=== PATIENT | female | born 2000 | race Caucasian/White ===

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

== ENCOUNTER 2019-01-04 19:07 | Emergency (ER) | payer BC ==
[~2019-01-04] VITALS: Ht 170.2 cm; Wt 47.6 kg
[~2019-01-04 19:07] MED LIST: QUETIAPINE FUM100 MG ORAL
[2019-01-04 19:10] VITALS: BP 134/88
--- NOTE | 2019-01-04 19:10 | NUR ---
ED Nurse Note: Patient brought in by [facility] c/o possible overdose, EMS states that the patient was found laying on the ground and when patient was picked up by EMS, patient had an unsteady gait. at time of arrival patient is alert and oriented x4, ambulatory with a steady gait, VSS. patient complains of no pain
--- NOTE | 2019-01-04 20:05 | Emergency Room Report ---
History of Present Illness General Chief Complaint: Substance Abuse Source: Patient Present Illness HPI Disclaimer: Please note that this report is being documented using [employer] technology. This can lead to erroneous entry secondary to incorrect interpretation by the dictating instrument. HPI: Is a 18-year-old female with history of depression on Seroquel presented for evaluation of ketamine use. She states she took ketamine recreationally today. Her roommate became concerned that she was ambulating with an unsteady gait at home and called EMS. The patient denies any complaints at this time but does endorse taking ketamine and that she was acting "high" making her roommate very scared. She denies any headache, vision changes, nausea, vomiting , chest pain, shortness of breath, cough, diarrhea or any other changes in her health. She has taken ketamine before. She denies SI/HI and states this was a recreational use. Denies any trauma or fall. Denies any other coingestants such as alcohol, other substances. Admits to smoking cigarettes PMH: Depression PSH: Denies Allergies: Sulfa medications Social Hx: Smokes cigarettes, substance abuse, occasional alcohol use Allergies: Coded Allergies: SULFA (SULFONAMIDE ANTIBIOTICS) (Unverified Allergy, Unknown, 01/04/19) Patient History Last Menstrual Period: 2 weeks Now: No Nursing Documentation-PMH Past Medical History: No Stated History Review of Systems All Other Systems: negative except mentioned in HPI Physical Exam Vital Signs Date Time Temp Pulse Resp B/P (MAP) Pulse Ox O2 Delivery O2 Flow Rate FiO2 01/04/19 19:05 98.6 77 18 134/88 (103) 98 Room Air Mild bilateral horizontal nystagmus. Equal and reactive pupils, 4 mm. General: Awake and alert, no acute distress HEENT: NC/AT. No evidence of trauma. No scalp, face hematoma, lacerations or abrasions. EOMI. PERRLA. Pupils are approximately 5 mm and reactive bilaterally. There is slight bilateral horizontal nystagmus. No rotary nystagmus. Moist mucous membranes. Neck: Supple, trachea midline Chest Wall: No tenderness, no deformity Cardiovascular: RRR. S1 and S2 normal. No murmur appreciated Resp: Normal work of breathing. No cough, wheezing or crackles appreciated Abdomen: Abdomen is soft, nondistended. Nontender Skin: Intact. No abrasions, laceration or rash over the exposed skin MSK: Normal tone and bulk. Moving all extremities. No obvious deformity. Neuro: Awake and alert. Mentating appropriately. GCS 15. Awake and oriented x3. Bilateral horizontal nystagmus. No ataxia, ambulate with a steady gait. Sensation intact over the upper and lower extremity's bilaterally. Good insight into her medical condition. Denies SI/HI. Medical Decision Making Diagnostic Impression: Primary Impression: Substance abuse Additional Impression: Ketamine use disorder, mild ER Course 18-year-old female presents for evaluation after recreational ketamine use. Ataxia is now resolved. She is awake, alert, oriented and behaving appropriately. She denies any injury, complaints at this time. Overall she is well-appearing with stable vital signs. She has some slight horizontal nystagmus but otherwise no tachycardia, no respiratory complaints and is overall in her usual state of health. She adamantly denies SI/HI and states this was a recreational use. We will check an hCG and an EKG and if unremarkable she may be discharged into the care of her friends to take her home. She should follow-up with her PMD and return to the emergency department any new or worsening symptoms. Laboratory Tests Test 01/04/19 20:30 Urine HCG, Qualitative Negative (NEGATIVE) EKG Diagnostic Results EKG Time: 20:16 Rate: normal Rhythm: NSR ST Segments: no acute changes Other Impression Sinus rhythm, normal axis, normal intervals, no ST segment changes Rhythm Strip Diag. Results Rhythm Strip Time: 20:16 EP Interpretation: yes Rate: 60s Rhythm: NSR, no PVC's, no ectopy Reevaluation Time: 21:00 Last Vital Signs Date Time Temp Pulse Resp B/P (MAP) Pulse Ox O2 Delivery O2 Flow Rate FiO2 01/04/19 19:10 98.6 77 18 134/88 98 Room Air Reevaluation Impression EKG unremarkable. Vitals are within normal limits. hCG negative. Patient is awaiting a ride from her roommate. Stable for outpatient follow-up. Disposition: HOME, SELF-CARE Condition: Stable Modesto Joaquin MD Jan 04, 2019 20:05
--- NOTE | 2019-01-04 20:58 | NUR ---
ED Nurse Note: CALLED LAB AND VERIFIED URINE SPECIMEN RECEIVED, CURRENTLY BEING PROCESSED.
[2019-01-04 21:30] VITALS: BP 130/82
--- NOTE | 2019-01-04 21:30 | NUR ---
ER DISCHARGE NOTE: Patient is cleared to be discharged per ERMD, pt is aox4, on room air, with stable vital signs. pt was given dc and prescription instructions, pt was able to verbalize understanding, pt id band removed without complications. pt is able to ambulate with steady gait. pt took all belongings. Patient is leaving with mom
--- NOTE | 2019-01-05 14:55 | Cardiology Report ---
APPROVED REPORT EKG Measurement Heart [id number] NV [id number] Normal sinus rhythm Normal ECG
== END 2019-01-04 21:30 | disposition home or self-care (01) ==
LOC: EDBD 19:07 → EMR 19:49
DX: F19.90 Other psychoactive substance use, unspecified, uncomplicated (principal); F32.9 Major depressive disorder, single episode, unspecified; Z88.2 Allergy status to sulfonamides
CPT/HCPCS: 81025; 93005; 99283